=== PATIENT | male | born 1980 | race Caucasian/White ===

== ENCOUNTER 2022-04-07 19:05 | Emergency (ER) | payer BC, MEDICAID, SELFPAY ==
[2022-04-07 19:42] VITALS: BP 171/94; PULSE 70; RESP 16; TEMP 36.3; O2SAT 98
--- NOTE | 2022-04-07 22:36 | ED_ITS ---
HPI - Abdominal Pain General: Chief Complaint: Abdominal Pain Stated Complaint: Abd pain Time Seen by Provider: 04/07/22 22:31 History of Present Illness: 41-year-old male patient comes in [facility] with complaints of persistent diarrhea for 2 weeks. Patient reports some occasional cramping. Patient is use some [id number] medication for diarrhea with minimal to no relief. Patient denies any blood in the stool. Patient denies any high fevers. Patient appears nontoxic. Patient appears in no pain. Associated Symptoms: Reports diarrhea and nausea Review of Systems GI: Reports: nausea and diarrhea Physical Exam Const: COMMON NORMALS: alert HENMT: COMMON NORMALS: normocephalic HEAD & SCALP: normocephalic Neck/C-Spine: COMMON NORMALS: full ROM Resp: COMMON NORMALS: normal respiratory effort and clear to auscultation bilaterally AUSCULTATION: clear to auscultation bilaterally Cardio: COMMON NORMALS: regular rate and regular rhythm RATE: regular rate RHYTHM: regular rhythm GI: COMMON NORMALS: Soft to palpation and non-tender PALPATION: Yes Soft to palpation Extremity: COMMON NORMALS: normal to inspection Neuro: SENSORIUM/ORIENTATION: Yes alert Course Vital Signs: Vital signs: Vital Signs Temperature 97.3 F L 04/07/22 19:42 Pulse Rate 70 04/07/22 23:12 Respiratory Rate 17 04/07/22 23:12 Blood Pressure 137/88 04/07/22 23:12 Pulse Oximetry 97 04/07/22 23:12 Oxygen Delivery Me thod 04/07/22 22:40 MDM - Abdominal Pain Medical Decision Making 41-year-old male patient comes in today for complaints of some persistent diarrhea for the last 2 weeks. On exam abdomen soft and nontender. Skin is warm and dry. Vital signs are normal except for some mild elevation of blood pressure. Differential diagnosis includes gallbladder disease, colitis, enteritis, gastroenteritis. Patient reports no vomiting. Laboratory values were remarkable for some mild elevation in white blood count. Suspect patient may have an infectious diarrhea. We will treat with Cipro 500 and Flagyl 500 twice a day for 10 doses. Patient was also given some Lomotil for diarrhea. Patient reported understanding of care plan need for follow-up or return to the ER. Lab Data : 04/07/22 22:40 04/07/22 22:40 Labs/Radiology: Laboratory Results WBC 10.3 10^3/uL (4.0-10.0) H 04/07/22 22:40 RBC 5.13 10^6/uL (4.1-5.3) 04/07/22 22:40 Hgb 15.2 g/dL (11.7-16.6) 04/07/22 22:40 Hct 47.1 % (42.0-52.0) 04/07/22 22:40 MCV 91.8 fl (80-94) 04/07/22 22:40 MCH 29.6 pg (28.0-34.0) 04/07/22 22:40 MCHC 32.3 g/dL (30.0-36.0) 04/07/22:40 RDW 12.4 % (12.1-15.1) 04/07/22:40 Plt Count 158 10^3/cmm (130-400) 04/07/22 22:40 MPV 11.4 fL (7.4-10.4) H 04/07/22 22:40 Neut % (Auto) 55.7 % 04/07/22 22:40 Lymph % (Auto) 16.5 % 04/07/22 22:40 [place] % (Auto) 7.2 % 04/07/22:40 Eos % (Auto) 19.9 % 04/07/22:40 Baso % (Auto) 0.4 % 04/07/22:40 Neut # (Auto) 5.73 10^3/uL (1.8-7.7) 04/07/22:40 Lymph # (Auto) 1.7 10^3/uL (0.8-4.8) 04/07/22 22:40 [place] # (Auto) 0.7 10^3/uL (0.2-0.9) 04/07/22 22:40 Eos # (Auto) 2.1 10^3/uL (0.0-0.8) H 04/07/22 22:40 Baso # (Auto) 0.0 10^3/uL (0.0-0.1) 04/07/22 22:40 Nucleated RBC % (auto) 0 % 04/07/22:40 Nucleated RBCs # 0.0 /100WBC 04/07/22 22:40 Sodium 140 mmol/L (136-145) 04/07/22 22:40 Potassium 4.2 mmol/L (3.5-5.1) 04/07/22 22:40 Chloride 101 mmol/L (98-107) 04/07/22 22:40 Carbon Dioxide 29 mmol/L (22-29) 04/07/22 22:40 Anion Gap 14.2 (5-19) 04/07/22 22:40 BUN 19 mg/dL (6-20) 04/07/22 22:40 Creatinine 0.9 mg/dL (0.7-1.2) 04/07/22 22:40 GFR Calculation 92.5 mL/min (90-130) 04/07/22 22:40 Glucose 89 mg/dL (65-115) 04/07/22 22:40 Calculated Osmolality 292 mOsm/kg (285-295) 04/07/22 22:40 Calcium 9.4 mg/dL (8.5-10.5) 04/07/22 22:40 Total Bilirubin 0.4 mg/dL (0.15-1.2) 04/07/22 22:40 AST 15 U/L (0-40) 04/07/22 22:40 ALT 23 U/L (0-41) 04/07/22 22:40 Alkaline Phosphatase 78 U/L (40-130) 04/07/22 22:40 Total Protein 6.7 g/dL (6.6-8.7) 04/07/22 22:40 Albumin 4.4 g/dL (3.5-5.2) 04/07/22 22:40 Globulin 2.3 g/dL (1.3-4.6) 04/07/22 22:40 Lipase 16 U/L (13-60) 04/07/22 22:40 Discharge Plan Discharge Patient Disposition: Home Clinical Impression: Infectious diarrhea in adult patient Condition: Stable Prescriptions: New Cipro 500 mg tablet 500 mg PO Q12H Qty: 9 0RF metronidazole 500 mg tablet 500 mg PO BID Qty: 9 0RF Lomotil 2.5-0.025 mg tablet 1 tab PO Q8H PRN (Reason: diarrhea) Qty: 7 0RF Discharge Orders: Discharge ED (Routine); Ordered 04/07/22 Ordered By: Fercho Myers Discharge Diet: Usual diet Discharge Activity: Increase activity as tolerated Patient Instructions: Acute Diarrhea (ED) Activity Restrictions/Additional Instructions: Take antibiotic for 5 days. Drink plenty of water. Use an electrolyte solution to help maintain the bodies natural salts especially with diarrhea. Use the antidiarrhea medication as directed. Eat a healthy diet. Follow-up with primary care in 3 days for recheck. Return to ER for worsening symptoms such as high fever greater than 100.4, uncontrolled abdominal pain, or new concerns. Coding Level of Care Code ED Microbiological Laboratory Technician for Debbie Tinsley
--- NOTE | 2022-04-07 22:39 | PC.NURSE ---
assumed care of patient at this time.
[2022-04-07 22:40] VITALS: O2SAT 99
--- NOTE | 2022-04-07 22:54 | PC.NURSE ---
stool sample collected and taken to lab, attending notified. green, very foul odor, frothy.
[2022-04-07] MEDS: sodium chloride 0.9% 1,000 ML 999 ML IV (22:56)
[2022-04-07 22:59] LABS: Basophils % 0.4 %; Eosinophils # 2.1 10^3/uL (0.0-0.8); Eosinophils % 19.9 %; Hematocrit 47.1 % (42.0-52.0); Hemoglobin 15.2 g/dL (11.7-16.6); Lymphocytes # 1.7 10^3/uL (0.8-4.8); Lymphocytes % 16.5 %; Mean Corpuscular HGB Conc 32.3 g/dL (30.0-36.0); Mean Corpuscular Hemoglobin 29.6 pg (28.0-34.0); Mean Corpuscular Volume 91.8 fl (80-94); Mean Platelet Volume 11.4 fL (7.4-10.4); Monocytes # 0.7 10^3/uL (0.2-0.9); Monocytes % 7.2 %; Neutrophils # 5.73 10^3/uL (1.8-7.7); Neutrophils % 55.7 %; Nucleated Red Blood Cells % 0 %; Platelet Count 158 10^3/cmm (130-400); Red Blood Count 5.13 10^6/uL (4.1-5.3); Red Cell Distribution Width 12.4 % (12.1-15.1); White Blood Count 10.3 10^3/uL (4.0-10.0)
[2022-04-07 23:12] VITALS: BP 137/88; PULSE 70; RESP 17; O2SAT 97
[2022-04-07 23:19] LABS: Alanine Aminotransferase 23 U/L (0-41); Albumin Level 4.4 g/dL (3.5-5.2); Alkaline Phosphatase 78 U/L (40-130); Anion Gap 14.2 (5-19); Aspartate Amino Transferase 15 U/L (0-40); Blood Urea Nitrogen 19 mg/dL (6-20); Calcium 9.4 mg/dL (8.5-10.5); Carbon Dioxide 29 mmol/L (22-29); Chloride 101 mmol/L (98-107); Globulin 2.3 g/dL (1.3-4.6); Glomerular Filtration Rate 92.5 mL/min (90-130); Glucose 89 mg/dL (65-115); Lipase 16 U/L (13-60); Osmolality Calculated 292 mOsm/kg (285-295); Potassium 4.2 mmol/L (3.5-5.1); Sodium 140 mmol/L (136-145); Total Bilirubin 0.4 mg/dL (0.15-1.2); Total Protein 6.7 g/dL (6.6-8.7)
[2022-04-07] MEDS: diphenoxylate/atropine Tablet 2 TAB PO (23:31)
[2022-04-07] MEDS: metroNIDAZOLE 500 MG Tablet PO (23:31)
[2022-04-07] MEDS: ciprofloxacin 500 mg Tablet PO (23:31)
[2022-04-07 23:36] VITALS: BP 139/88; PULSE 70; RESP 16; O2SAT 98
== END 2022-04-07 23:37 | disposition home or self-care (01) ==
PROVIDERS: Emergency Provider Nurse Practitioner Family
DX: A09 Infectious gastroenteritis and colitis, unspecified (principal)
CPT/HCPCS: 80053; 83630; 83690; 85025; 87506; 96360; 99284; J7030

== ENCOUNTER → 2024-04-07 09:05 | Outpatient (BNVA) | payer MEDICAID, SELFPAY | PROVIDERS: Visit Provider Specialist | DX: M25.562 Pain in left knee (principal) | CPT/HCPCS: 73560; 73565 ==

== ENCOUNTER 2024-04-25 08:00 | Outpatient (CLI) | payer MEDICAID, SELFPAY ==
--- NOTE | 2024-04-25 08:00 | MR_ITS ---
WS: [id number] MRI LEFT KNEE NONCONTRAST TECHNIQUE: Axial PD, coronal PD fat sat, coronal PD, sagittal PD, and sagittal PD fat-sat images obta ined. CLINICAL INFORMATION: left knee pain COMPARISON: None. FINDINGS: Distal quadriceps and patella tendons are intact. Hypertrophic patella. High-grade complete tear of t he ACL. No normal fibers visualized. This has a chronic appearance. Normal PCL. 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 High-grade compl ex tear involving the posterior horn lateral meniscus. Irregularity and blunting of the posterior hor n. Tear extends to the joint capsule. Suggestion of meniscal fragment extending into the intercondyla r notch. Associated blunting of the anterior horn. Chronic appearing thinning of the medial meniscus with meniscal root tear. Advanced chondromalacia patella with chondral fissuring. No subchondral edema. Medial and lateral pat ellar retinaculum appear intact. Small suprapatellar effusion. Normal medial collateral ligament. Lat eral collateral ligament appears intact. Chronic appearing partial tear of the popliteus with degenerative changes involving the underlying la teral femoral condyle with associated subchondral cystic change. Fibular head appears normal. Edema i nvolving the lateral tibial plateau MR/MR knee LT wo con* [id number] IMPRESSION: 1. 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 PCL appears intact. 2. Complex bucket-handle type tear involving the posterior horn lateral menisc us with suggestion of meniscal fragment extending into the intercondylar notch. Tear extends peripherally to the joint capsule. 3. Medial meniscus root tear. 4. Advanced chondromalacia patella with chondral fissuring grade 3. 5. Small suprapatellar effusion. 6. Grade grade 3-4 chondromalacia medial and lateral joint compartments with s ubchondral edema involving the lateral tibial plateau. 7. Chronic appearing tear involving the popliteus. 8. Small lobulated popliteal cyst measuring 2.6 x 3.8 cm AP by craniocaudal. Outbridge grading: grade IV: full-thickness cartilage loss with underlying bone reactive changes
== END 2024-04-25 08:01 | disposition home or self-care (01) ==
LOC: RAD 08:01
PROVIDERS: PCP Registered Nurse; Visit Provider Specialist
DX: S83.512A Sprain of anterior cruciate ligament of left knee, initial encounter (principal); M23.8X2 Other internal derangements of left knee; X58.XXXA Exposure to other specified factors, initial encounter; M22.42 Chondromalacia patellae, left knee
CPT/HCPCS: 73721